=== PATIENT | male | born 1980 | race American Indian/Alaskan Native ===

== ENCOUNTER 2020-02-11 09:30 | Day surgery (SDC) | payer OTHER ==
[2020-02-11 11:13] LABS: Blood Urea Nitrogen 10 mg/dL (9-20)
[2020-02-11] MEDS ORDERED: ATROPINE 0.1% (1 MG/10 ML) CARDIAC SYRINGE ONE (11:22)
[2020-02-11] MEDS ORDERED: METOPROLOL TARTRATE 5 MG/5 ML INJ IV ONE (11:22)
[2020-02-11 11:42] VITALS: BP 125/73
[2020-02-11] MEDS ORDERED: NITROGLYCERIN 0.4 MG TAB SUBL SL ONE (12:00)
--- NOTE | 2020-02-11 20:43 | CT Calcium Scoring Report ---
Coronary Calcium Score Date of service: 02/11/20 Procedure: High-resolution computed tomographic imaging of the chest was performed on02/11/20 with particular attention paid to the coronary arteries. Images from the examination were analyzed for the presence and extent of coronary artery calcification, using coronary calcium quantification software. The patient tolerated the procedure well and there were no complications. The results of the coronary calcification analysis are provided below. The patient scores are compared with published data related to scores for people of a similar age and the same gender. - Findings Left Main Artery: 6 Left Anterior Descending Artery: 72.1 Left Circumflex(LCX): 5 Right Coronary Artery(RCA): 1.4 Total Agatson Score: 84.4 Percentile Ranking: >75 Findings: Cardiac CTA Indication: chest pain Informed consent obtained Procedure: The patient was brought to the cardiac ct laboratory at [facility] in stable condition after a 4 hour fast. Heart rate was regulated by beta blockade. Sublingual ngt was administered. After data acquition and reconstruction, the imgages were processed and reviewed on the computer workstation. Multiple phases of the cardiac cycle were assessed for image interpretation. Volume rendered images, multiplanar reformated images, and maximum intensity proj ections images were generated and reviewed A coronary calcium score was performed via the Agatston method. A separate radiology assessment of the non cardiac structures in the field of view will be provided. Superior vena cava in the field of view appears normal Inferior vena cava in the filed of view appears normal Ascending aorta in the field of view appears normal Descending aorta in the field of view appears normal Pulmonary artery in the filed of view appears normal Pulmonary veins enter the left atrium appropriately Left ventricle appears normal Right Ventricle appears normal Left atrium appears normal Left atrial appendage appears normal Right atrium appears normal Interventricular septum appears normal Interatrial septum appears normal Aortic valve appears normal Mitral Valve appears normal Intracardiac mass: none Pericardial effusion: none Coronary Angiography: Dominance: right coronary Origins: normal Left main: mild non obstructive calcific plaque distal left main Left anterior descending coronary artery and diagonal branches: moderate eccentric non obstructive calcific plaque proximal Circumflex coronary artery and obtuse marginal branches: mild non obstructive calcific plaque proximal Right coronary artery: mild non obstructive calcific plaque proximal The procedure was tolerated well without complications
== END 2020-02-11 12:00 | disposition home or self-care (01) ==
LOC: CT 09:30 → CATHLABREC 09:30 → EDSTATUS 09:45 → CATHLABREC 12:00
PROVIDERS: ATTEND Internal Medicine Cardiovascular Disease
DX: R94.39 Abnormal result of other cardiovascular function study (principal); R07.89 Other chest pain; I10 Essential (primary) hypertension; J45.909 Unspecified asthma, uncomplicated; F17.210 Nicotine dependence, cigarettes, uncomplicated; E78.5 Hyperlipidemia, unspecified; Z72.89 Other problems related to lifestyle; E78.49 Other hyperlipidemia; Z82.49 Family history of ischemic heart disease and other diseases of the circulatory system; Z98.890 Other specified postprocedural states
CPT/HCPCS: 36415; 75574; 82565; 84520; Q9967; J0461

== ENCOUNTER 2020-07-04 08:15 | Outpatient (CLI) | payer OTHER ==
[2020-07-04] MEDS ORDERED: METOPROLOL TARTRATE 5 MG/5 ML INJ IV ONE (09:15)
[2020-07-04] MEDS ORDERED: NITROGLYCERIN 0.4 MG TAB SUBL SL ONE (09:15)
[2020-07-04] MEDS ORDERED: METOPROLOL TARTRATE 50 MG TAB ONE (09:40)
[2020-07-04 09:41] LABS: Blood Urea Nitrogen 10 mg/dL (9-20)
[2020-07-04] MEDS ORDERED: ATROPINE 0.1% (1 MG/10 ML) CARDIAC SYRINGE ONE (10:07)
[2020-07-04] MEDS ORDERED: METOPROLOL TARTRATE 50 MG TAB PO ONE (10:10)
[2020-07-04 12:21] VITALS: BP 133/82
--- NOTE | 2020-07-06 07:14 | CT Calcium Scoring Report ---
Coronary Calcium Score Date of service: 07/06/20 Procedure: High-resolution computed tomographic imaging of the chest was performed on07/04/20 with particular attention paid to the coronary arteries. Images from the examination were analyzed for the presence and extent of coronary artery calcification, using coronary calcium quantification software. The patient tolerated the procedure well and there were no complications. The results of the coronary calcification analysis are provided below. The patient scores are compared with published data related to scores for people of a similar age and the same gender. - Findings Left Anterior Descending Artery: 103.7 Left Circumflex(LCX): 14.5 Right Coronary Artery(RCA): 4.0 Total Agatson Score: 122.2 Percentile Ranking: >75 Findings: Cardiac CTA Indication: chest pain Informed consent obtained Procedure: The patient was brought to the cardiac ct laboratory at [facility] in stable condition after a 4 hour fast. Heart rate was regulated by beta blockade. Sublingual ngt was administered. After data acquisition and reconstruction, the images were processed and reviewed on the computer workstation. Multiple phases of the cardiac cycle were assessed for image interpretation. Volume rendered images, multiplanar reformated images, and maximum intensity projections images were generated and reviewed A coronary calcium score was performed via the Agatston method. A separate radiology assessment of the non cardiac structures in the field of view will be provided. Superior vena cava in the field of view appears normal Inferior vena cava in the filed of view appears normal Ascending aorta in the field of view appears normal Descending aorta in the field of view appears normal Pulmonary artery in the filed of view appears normal Pulmonary veins enter the left atrium appropriately Left ventricle appears normal Right Ventricle appears normal Left atrium appears normal Left atrial appendage appears normal Right atrium appears normal Interventricular septum appears normal Interatrial septum appears normal Aortic valve appears normal Mitral Valve appears normal Intracardiac mass: none Pericardial effusion: none Coronary Angiography: Dominance: right Origins: normal Left main: normal Left anterior descending coronary artery and diagonal branches: non obstructive mixed plaque in proximal vessel 25-50% stenosis. non obstructive dense calcific plaque also noted in proximal vessel Circumflex coronary artery and obtuse marginal branches: non obstructive mixed plaque, 25-50% stenosis in proximal vessel Right coronary artery: non obstructive calcfiic plaque in proximal vessel the procedure was tolerated well without complications
--- NOTE | 2020-07-12 14:34 | Cat Scan Report ---
CT over read. INDICATION: Abnormal stress. TECHNIQUE: All CT scans at this location are performed using the following dose modulation technique: Automated exposure control. CONTRAST: IV COMPARISON: None available. FINDINGS: Imaged soft tissues bones and lungs demonstrate no significant abnormality. IMPRESSION: Unremarkable CT over read. Signer Name: Rene Rowe MD Signed: 07/12/2020 2:29 PM Workstation Name: [id number]
== END 2020-07-04 08:16 | disposition home or self-care (01) ==
LOC: CATHLABREC 08:15 → CT 08:15 → CATHLABREC 08:16
PROVIDERS: ATTEND Internal Medicine Cardiovascular Disease
DX: R07.89 Other chest pain (principal); R94.39 Abnormal result of other cardiovascular function study
CPT/HCPCS: 36415; 75574; 82565; 84520; Q9967; J0461